=== PATIENT | female | born 1970 | race Caucasian/White ===

== ENCOUNTER 2019-06-01 12:30 | Inpatient (IN) | payer BC ==
[~2019-06-01] VITALS: Ht 167.6 cm; Wt 74.2 kg
[2019-06-01 14:03] VITALS: BP 126/67; PULSE 58; TEMP 98.6
--- NOTE | 2019-06-01 14:10 | NUR ---
Patient up to room 326, spouse at bedside. Alert and oriented x 3. Patient arrived by POV, transfered self to bed. Patient changed into gown. Family and patient oriented to room. Initial and 5 page complete. Denies further needs at this time. Contacted Dr. Cruz for orders, hip fracture orders entered.
[2019-06-01 15:19] LABS: BASO # 0.1 (0.0-0.2); BASO % 0.5 % (0.0-2.0); EOS % 0.2 % (0-4.0); GRAN # 9.4 (1.4-6.5); GRAN % 75.4 % (42.2-75.2); HEMOGLOBIN 12.5 g/dl (12.5-16.0); LYMPH # 2.3 (1.2-3.4); LYMPH % 18.4 % (20.0-51.0); MEAN CELL VOLUME 96 fl (80.0-100.0); MEAN CORPUSCULAR HEMOGLOBIN 32 pg (27.0-31.0); MEAN CORPUSCULAR HGB CONC 33 g/dl (33.0-37.0); MONO # 0.6 (0.1-0.6); PLATELET COUNT 172 K/mm3 (130-400); RED BLOOD COUNT 3.95 M/mm3 (4.10-5.30); REDCELL DISTRIBUTION WIDTH-CV 12.2 % (11.5-14.5)
[2019-06-01 15:26] LABS: INR 1.1 (0.8-3.0); PROTHROMBIN TIME 12.5 SECONDS (9.7-12.8)
[2019-06-01 15:35] LABS: ALBUMIN 4.3 gm/dL (3.5-5.0); BILIRUBIN,TOTAL 0.6 mg/dL (0.0-1.0); CALCIUM 9.1 mg/dL (8.4-10.2); CREATININE, serum 0.79 (0.52-1.25); POTASSIUM 3.7 mmol/L (3.4-5.0); TOTAL PROTEIN 7.1 gm/dL (6.4-8.2)
[2019-06-01 15:42] LABS: PRE ALBUMIN 20.4 mg/dL (17.6-36.0)
[2019-06-01 16:23] VITALS: BP 130/75; PULSE 54; TEMP 98.6
[2019-06-01 16:43] LABS: PH 8 (5-8); SQUAMOUS EPITHELIAL 0-2 /hpf; URINE APPEARANCE Clear; URINE BACTERIA None Seen /hpf; URINE BILIRUBIN Negative (NEGATIVE); URINE BLOOD 1+ (NEGATIVE); URINE COLOR Straw; URINE GLUCOSE Negative (NEGATIVE); URINE KETONE Negative (NEGATIVE); URINE LEUKOCYTE ESTERASE Negative (NEGATIVE); URINE NITRATE Negative (NEGATIVE); URINE PROTEIN(semi-quant) Negative (NEGATIVE); URINE UROBILINOGEN Negative (NEGATIVE)
[2019-06-01 17:00] LABS: COLLECTION METHOD CLEAN CATCH
--- NOTE | 2019-06-01 18:57 | NUR ---
Patient doing well this afternoon, pain medication given for pain 6/10 to right hip. Pedal pulses intact. Denies further needs at this time. Reported off to structural metal fabricator apprentice.
[2019-06-01 19:30] VITALS: BP 117/71; PULSE 60
--- NOTE | 2019-06-01 19:30 | NUR ---
Pt. laying in bed with at bedside. Pt. is A&OX3, assessment complete. IV to rt. forearm patent, IV fluids infusing per orders. Pt. denies pain at this time. Call light within reach.
[2019-06-02] VITALS (12 sets, daily range): BP systolic 94–133; BP diastolic 50–76; PULSE 49–103; TEMP 97.6–99.1
[2019-06-02 07:08] LABS: BASO % 0.4 % (0.0-2.0); EOS # 0.1 (0.0-0.7); EOS % 0.8 % (0-4.0); GRAN # 4.9 (1.4-6.5); GRAN % 63.4 % (42.2-75.2); HEMOGLOBIN 11.7 g/dl (12.5-16.0); LYMPH # 2.1 (1.2-3.4); LYMPH % 27.8 % (20.0-51.0); MEAN CELL VOLUME 98 fl (80.0-100.0); MEAN CORPUSCULAR HEMOGLOBIN 32 pg (27.0-31.0); MEAN CORPUSCULAR HGB CONC 32 g/dl (33.0-37.0); MEAN PLATELET VOLUME 10.1 fl (7.4-10.4); MONO # 0.6 (0.1-0.6); MONO % 7.3 % (1.7-9.3); PLATELET COUNT 181 K/mm3 (130-400); RED BLOOD COUNT 3.71 M/mm3 (4.10-5.30); REDCELL DISTRIBUTION WIDTH-CV 12.4 % (11.5-14.5)
--- NOTE | 2019-06-02 07:30 | NUR ---
No c/o pain. To surgery per bed with OR staff.
[2019-06-02 08:00] LABS: HEMATOCRIT 36.2 % (37.0-47.0)
--- NOTE | 2019-06-02 09:15 | NUR ---
Returned to room per bed from surgery. No complaints. VSS. Gauze dressing CDI to right hip.
--- NOTE | 2019-06-02 12:47 | NUR ---
Plan: To return home with [place]on . Assess: Patient reports that she resides in [facility]. Patient indicated that she is supported by spouse and declines any HHS. Patient reports that her PCP is Dr. Lawson Nam. Patient reports that she uses [facility] for her medications in [facility]. Patient wants her son Dat De listed for EMR at . Patient denies the use of any DME. Patient denies any care concerns. Action: Sw educated on supports and services as well as community resources. No additional needs identified.
--- NOTE | 2019-06-02 15:55 | NUR ---
Ambulatory with walker to bathroom with toe touch weight bearing on right leg. Tylenol given for right hip discomfort.
--- NOTE | 2019-06-02 20:00 | NUR ---
Pt. sitting up in bed at this time. Pt. is A&OX3, assessment complete. INT to rt. forearm patent. Dressint to rt. hip with some drainage noted. Pt. denies pain at this time. Call light within reach.
[2019-06-03 01:10] VITALS: BP 103/61; PULSE 68; TEMP 98.5
[2019-06-03 04:36] VITALS: BP 106/49; PULSE 57; TEMP 98.4
[2019-06-03 07:33] LABS: CREATININE, serum 0.83 (0.52-1.25); POTASSIUM 4.2 mmol/L (3.4-5.0)
[2019-06-03 07:34] LABS: HEMATOCRIT 33.7 % (37.0-47.0)
[2019-06-03 07:38] LABS: INR 1.1 (0.8-3.0); PROTHROMBIN TIME 12.4 SECONDS (9.7-12.8)
--- NOTE | 2019-06-03 08:00 | NUR ---
Patient in bed resting. Alert and oriented x 3. Shift assessment complete. Patient has been up to restroom with walker, steady gait. Gauze dressing to right hip with miminal drainage. SCDs and Tedhose to BLE. Denies further needs at this time.
[2019-06-03 08:17] VITALS: BP 110/57; PULSE 68; TEMP 98.2
[2019-06-03] MEDS ORDERED: CELEBREX 200MG200 MG PO (11:38)
[2019-06-03] MEDS ORDERED: OSCAL 500 TAB500 MG PO (11:39)
[2019-06-03] MEDS ORDERED: ULTRAM 50MG TAB50 MG PO (11:39)
[2019-06-03] MEDS ORDERED: ASPIRIN E.C. 8181 MG PO (11:40)
[2019-06-03] MEDS ORDERED: VITAMIN C500 MG PO (11:40)
[2019-06-03] MEDS ORDERED: DUO-KAPS1 CAP PO (11:40)
--- NOTE | 2019-06-03 13:30 | NUR ---
Discharge education provided to patient. Educated on signs and symptoms of infection and incision care. Educated on when to call provider and follow up appointments. All questions answered. INT to right forarm discontinued, catheter tip intact. Denies further needs at this time.
--- NOTE | 2019-06-03 16:05 | NUR ---
Replanting Machine Operator met with the patient who states she feels she will benefit from obtaining a front wheeled walker upon discharge. SW presented DME choice form to patient who selected [facility] out of [place], [place]. MICHELLE spoke with Murtaza at [facility] then faxed facesheet, completed order for FWW, and therapy notes to [phone]. MICHELLE met with patient again who advised that she and her will shrimp picker the walker after discharge. No additional concerns at this time.
== END 2019-06-03 13:30 | disposition home or self-care (01) | DRG 482 ==
LOC: MEDICAL 12:30 → SURG 14:27
PROVIDERS: Orthopaedic Surgery; Physician Assistant; ADMIT Family Medicine
PROC: 0QS634Z Reposition Right Upper Femur with Internal Fixation Device, Percutaneous Approach (ICD-10-PCS; principal; 2019-06-02 08:00)
DX: S72.001A Fracture of unspecified part of neck of right femur, initial encounter for closed fracture (principal); W00.0XXA Fall on same level due to ice and snow, initial encounter; Y93.89 Activity, other specified; Y92.89 Other specified places as the place of occurrence of the external cause; Y99.8 Other external cause status; Z90.49 Acquired absence of other specified parts of digestive tract; Z90.710 Acquired absence of both cervix and uterus
CPT/HCPCS: 99222-AI; 99232-AI; 99239; A9284; C1713; C1776; J0690; J1885; J2250; J2270; J2405; J2704; J3010